=== PATIENT | female | born 1955 | race Caucasian/White ===

== ENCOUNTER → 2016-08-13 | Outpatient (CLI) | payer BC, OTHER ==
--- NOTE | 2016-08-13 14:16 | DRAGON STRESS TEST REPORT ---
EXERCISE TREADMILL CARDIOLITE STRESS TEST USING SINGLE PHOTON EMMISION COMPUTERIZED TOMOGRAPHIC. DATE OF PROCEDURE: August 13, 2016 INDICATION : Abnormal EKG CARDIAC RISK FACTORS: Diabetes, hypertension, smoking RESTING EKG: Sinus rhythm without any baseline ST-T wave changes STRESS EKG: No significant changes noted with exercise treadmill stress test REASON FOR TERMINATION: Dyspnea and fatigue PROCEDURE REPORT: Baseline heart rate 97 beats per minute with blood pressure of 134/80. Patient was excised on a standard Duncan protocol. Patient exercised for total of 4 minutes and 57 seconds. Exercise stopped because of fatigue and shortness of breath. Patient achieved a peak heart rate of 146 bpm which is 91% predicted maximum. Peak blood pressure noted to be 187/93. Patient reported no chest pain. No significant EKG changes were noted CONCLUSIONS: Normal EKG and hemodynamic response to treadmill stress test NUCLEAR DATA: At rest the patient was given [10.13] millicuries of technetium 99 sestamibi injected intravenously. As per protocol rest gated SPECT images were obtained. At peak exercise the stress dose of [30.7] millicuries of technetium 99 sestamibi was injected intravenously. Patient continued to exercise for one additional minute. As per protocol stress gated images were obtained. NUCLEAR INTERPRETATION: Both raw and processed data were used for interpretation. Visual, qualitative, computer-generated quantitative data was used. There was good myocardial uptake of technetium compound. Motion artifact and soft tissue attenuations were noted. Increased visceral uptake was noted. No definitive areas of transient perfusion defect noted. No definitive areas of fixed perfusion defect or scars noted. EKG gated imaging showed LV EF at 64 %, rest and stress gated EF similar visually. T. I D. ratio was 0.93. Lung heart ratio noted to be within normal limits 0.30. No significant extracardiac and abnormal radiotracer activities were noted. RV free wall uptake was noted to be borderline Increased. IMPRESSION: Also refer to comments under nuclear interpretation. Also test results needs to be interpreted in the context of pretest probability. 1. There is no definitive scintigraphic evidence of LexiScan induced myocardial ischemia. 2. There is no definitive scintigraphic evidence of myocardial infarction/scar. 3. EKG gated imaging shows left ejection fraction of approximately 64 %. RECOMMENDATIONS: Aggressive risk factor modification, medical therapy. Decreased exercise tolerance for patient age. Consider cardiology consultation if clinically indicated. I AM AVAILABLE FOR CARDIOLOGY CONSULTATION AND FOLLOWUP IF REQUESTED BY PMD Angela Wilhelm M.D., MRCP [employer], Board certified in cardiovascular diseases, Nuclear cardiology, Echocardiography Cardiac CT and cardiac MRI Ph. [phone] FARNAZ
== END ==
LOC: RAD 06:50
PROVIDERS: ATTEND Internal Medicine
DX: R07.9 Chest pain, unspecified (principal); R94.31 Abnormal electrocardiogram [ECG] [EKG]
CPT/HCPCS: 93017; 78452; A9500; Q9969

== ENCOUNTER 2017-06-08 08:46 | Emergency (ER) | payer BC, OTHER ==
[2017-06-08 08:52] VITALS: BP 158/97
[2017-06-08] MEDS ORDERED: HYDROCODONE/ACETAMINOPHEN 5-325 MG TABLET PO ONE (09:20)
[2017-06-08] MEDS ORDERED: AMOXICILLIN TR/POT CLAVULANATE 500-125 MG TAB PO ONE (09:20)
[2017-06-08] MEDS ORDERED: ONDANSETRON 4 MG TAB.RAPDIS PO ONE (09:20)
--- NOTE | 2017-06-08 10:17 | RADIOLOGY REPORT (SQ) ---
EXAM DESCRIPTION: FACIAL BONES COMPLETED DATE/TIME: 06/08/2017 9:58 am REASON FOR STUDY: fall hit face on ladder COMPARISON: None. NUMBER OF VIEWS: Three view. TECHNIQUE: Images of the facial bones acquired. LIMITATIONS: None. FINDINGS: ORBITS: No fracture. No foreign body. SINUSES: No mucosal thickening. No air fluid levels. FACIAL BONES: No fracture. OTHER: No other significant finding. IMPRESSION: NO FOREIGN BODY OR FRACTURE OF THE FACIAL BONES. TECHNICAL DOCUMENTATION: JOB ID: [id number] [employer]- All Rights Reserved
--- NOTE | 2017-06-08 10:52 | ER Document Report ---
ED Oral Problem - General Chief Complaint: Laceration Stated Complaint: LIP LACERATION Time Seen by Provider: 06/08/17 09:09 Mode of Arrival: Ambulatory Information source: Patient Notes: 61-year-old female presents to ED for pain in her right side of her face after she fell landing on a metal ladder. She states her last tetanus was about 2 months ago. She has a laceration to the face just above the lip and just to the right of the lip. She states she also feels dizzy. She denies taking any blood thinners. She is alert and oriented speaks full sentences and walks with a steady even gait. TRAVEL OUTSIDE OF THE [place] IN LAST 30 DAYS: No - HPI Patient complains to provider of: Jaw pain, Swelling of jaw, Other - Laceration to her face just to the right of her mouth and just above her upper lip as well as bruises Onset: Just prior to arrival Quality of pain: Burning, Sharp Severity: Moderate Pain Level: 4 Associated symptoms: Facial pain, Jaw pain, Other - Facial laceration and laceration inside of her mouth Similar symptoms previously: No Recently seen / treated by doctor/dentist: No - Related Data Allergies/Adverse Reactions: oxycodone HCl [From Percocet] Adverse Reaction (Verified 06/08/17 08:48) VOMITING tetracycline [Tetracycline] Adverse Reaction (Verified 06/08/17 08:48) VOMITING Past Medical History - General Information source: Patient - Social History Smoking Status: Unknown if Ever Smoked Frequency of alcohol use: None Lives with: Family Family History: Reviewed & Not Pertinent Patient has suicidal ideation: No Patient has homicidal ideation: No - Past Medical History Cardiac Medical History: Reports: Hx Hypercholesterolemia, Hx Hypertension Pulmonary Medical History: Reports: Hx COPD EENT Medical History: Reports: None Neurological Medical History: Reports: None Endocrine Medical History: Reports: Hx Diabetes Mellitus Type 2, Hx Hypothyroidism Renal/ Medical History: Reports: None Malignancy Medical History: Reports: None GI Medical History: Reports: None Musculoskeltal Medical History: Reports Hx Musculoskeletal Trauma Skin Medical History: Reports None Psychiatric Medical History: Reports: None Traumatic Medical History: Reports: None Past Surgical History: Reports: Hx Appendectomy, Hx Hysterectomy - Immunizations Immunizations up to date: Yes Hx Diphtheria, Pertussis, Tetanus Vaccination: Yes - 2017 Review of Systems - Review of Systems Constitutional: No symptoms reported EENT: Mouth pain, Other - Facial pain, jaw pain, facial laceration, mouth laceration. Cardiovascular: No symptoms reported Respiratory: No symptoms reported Gastrointestinal: No symptoms reported Genitourinary: No symptoms reported Female Genitourinary: No symptoms reported Musculoskeletal: Other - Facial bone and jaw pain Skin: Other - Facial laceration and oral laceration Hematologic/Lymphatic: No symptoms reported Neurological/Psychological: No symptoms reported -: Yes All other systems reviewed and negative Physical Exam - Vital signs Vitals: Temp Pulse Resp BP Pulse Ox 97.6 F 102 H 18 158/97 H 99 06/08/17 08:51 06/08/17 08:51 06/08/17 08:51 06/08/17 08:51 06/08/17 08:51 Interpretation: Normal - General General appearance: Appears well, Alert - HEENT Head: Normocephalic, Atraumatic Eyes: Normal Pupils: PERRL Ears: Normal External canal: Normal Tympanic membrane: Normal Sinus: Normal Nasal: Normal Mouth/Lips: Laceration - Laceration to the upper internal lip, Other - Laceration to the base just to the right of the lip and just above the right upper lip Mucous membranes: Normal Pharynx: Normal Neck: Normal - Respiratory Respiratory status: No respiratory distress Chest status: Nontender Breath sounds: Normal Chest palpation: Normal - Cardiovascular Rhythm: Regular Heart sounds: Normal auscultation Murmur: No - Abdominal Inspection: Normal Distension: No distension Bowel sounds: Normal Tenderness: Nontender Organomegaly: No organomegaly - Back Back: Normal, Nontender - Extremities General upper extremity: Normal inspection, Nontender, Normal color, Normal ROM , Normal temperature General lower extremity: Normal inspection, Nontender, Normal color, Normal ROM , Normal temperature, Normal weight bearing. No: Kym's sign - Neurological Neuro grossly intact: Yes Cognition: Normal Orientation: AAOx4 Ayla Coma Scale Eye Opening: Spontaneous [place] Coma Scale Verbal: Oriented Ayla Coma Scale Motor: Obeys Commands Ayla Coma Scale Total: 15 Speech: Normal Motor strength normal: LUE, RUE, LLE, RLE Sensory: Normal - Psychological Associated symptoms: Normal affect, Normal mood - Skin Skin Temperature: Warm Skin Moisture: Dry Skin Color: Normal Skin irregularity: Laceration - Right side of the face just beside the mouth and just above the right upper lip Location of irregularity: Face Irregularity with: Tenderness Course - Re-evaluation Re-evalutation: 06/08/17 20:58 Patient treated with [place] and Augmentin and discharged home with rest of the [place] dispense back. - Vital Signs Vital signs: Temp Pulse Resp BP Pulse Ox 97.6 F 102 H 18 158/97 H 99 06/08/17 08:51 06/08/17 08:51 06/08/17 08:51 06/08/17 08:51 06/08/17 08:51 Procedures - Laceration/Wound Repair Right Face side and above the mouth Time completed: 10:56 Wound length (cm): 3 Wound's Depth, Shape: Superficial Laceration pre-procedure: Sterile PPE donned, Sterile drapes applied, Shur- Clens applied Anesthetic type: Other - none Volume Anesthetic (mLs): 0 Wound explored: Contaminated Irrigated w/ Saline (mLs): 200 Wound Repaired With: Steri-strips, Dermabond Number of Sutures: 0 Layer Closure?: No Post-procedure NV exam normal: Yes Discharge - Discharge Clinical Impression: Facial laceration Qualifiers: Encounter type: initial encounter Qualified Code(s): S01.81XA - Laceration without foreign body of other part of head, initial encounter Laceration of oral cavity Qualifiers: Encounter type: initial encounter Qualified Code(s): S01.512A - Laceration without foreign body of oral cavity, initial encounter Condition: Stable Disposition: HOME, SELF-CARE Additional Instructions: ORAL LACERATION, NOT SUTURED: The laceration in your mouth was not sutured because the physician felt it would heal well without it. Suturing does increase the risk of infection somewhat, as germs in the wound are trapped inside. Most cuts in the mouth heal quickly with no significant scar. The wound will appear white and rough tomorrow. This unusual appearance is normal for an oral laceration, and will persist until healing is complete. You should rest for 24 hours to minimize swelling. Avoid tart or spicy foods, or hard foods which might stick in the cut (like tortilla chips), for a few days. If any signs of infection occur (swelling, redness of the skin directly over the laceration area, increasing tenderness, tender lumps below the jaw or on the sides of the neck, or fever), see the doctor immediately. NON-SUTURED LACERATION: Your laceration did not require suturing. Some lacerations cannot be sutured because of increased infection risk, while others simply don't need stitches because they are shallow or very short. Your injury should be protected while it heals. Usually complete healing takes 10 to 14 days. Keep the dressing clean and dry, and change it every day. If you notice increasing pain, redness, swelling, drainage, or tender lumps in the armpit or groin above the injury, infection may be present. You should call the doctor at once. Augmentin Augmentin is a mixture of amoxicillin and clavulanate. Amoxicillin is a member of the penicillin family. It covers the germs likely to cause ear, bronchial, and urinary infections better than plain penicillin. The addition of clavulanate allows it to cover staph infections of the skin, as well as resistant cases of ear and sinus infections. Your physician has chosen Augmentin for you because of the special nature of your situation. Augmentin is best taken with meals. Nausea after taking the medication is rare, but can occur. Diarrhea can occur, particularly in small children. Vaginal yeast infections, and oral thrush in infants are also common. Contact your physician if these problems occur. Allergy to penicillins is common. If you have had an allergic reaction to any drug of the penicillin family, you should never take any other penicillin. Notify your doctor at once if you develop hives, shortness of breath, swelling, or faintness. Acetaminophen Acetaminophen may be taken for pain relief or fever control. It's much safer than aspirin, offering a wider range of "safe" dosages. It is safe during . Some brand names are Tylenol, Panadol, Datril, Anacin 3, Tempra, and Liquiprin. Acetaminophen can be repeated every four hours. The following are maximum recommended dosages: WEIGHT Dose Drops Elixir Chewable( 80mg) (LBS.) drprs=droppers tsp=teaspoon 6 40 mg .4 ml (1/2) 6-11 80 mg .8 ml (full) 1/2 tsp 1 tab 12-16 120 mg 1 1/2 drprs 3/4 tsp 1 1/2 tabs 17-23 160 mg 2 drprs 1 tsp 2 tabs 24-30 240 mg 3 drprs 1 1/2 tsp 3 tabs 30-35 320 mg 2 tsp 4 tabs 36-41 360 mg 2 1/4 tsp 4 1 /2 tabs 42-47 400 mg 2 1/2 tsp 5 tabs 48-53 480 mg 3 tsp 6 tabs 54-59 520 mg 3 1/4 tsp 6 1 /2 tabs 60-64 560 mg 3 1/2 tsp 7 tabs 65-70 600 mg 3 3/4 tsp 7 1 /2 tabs 71-76 640 mg 4 tsp 8 tabs 77-82 720 mg 4 1/2 tsp 9 tabs 83-88 800 mg 5 tsp 10 tabs >89 pounds or adults 650 mg to 900 mg Acetaminophen can be repeated every four hours. Maximum daily dose not to exceed 4000 mg. These maximum recommended dosages are slightly higher than the dosages written on the product container, but these dosages are very safe and well below the toxic dosage for acetaminophen. Oral Narcotic Medication You have been given a prescription for pain control. This medication is a narcotic. It's best taken with food, as nausea can result if taken on an empty stomach. Don't operate machinery or drive within six hours of taking this medication. Do not combine this medicine with alcohol, or with any medication which can cause sedation (such as cold tablets or sleeping pills) unless you get permission from the physician. Narcotics tend to cause constipation. If possible, drink plenty of fluids and eat a diet high in fiber and fruits. Ibuprofen Ibuprofen is an excellent, safe drug for pain control. In addition, it has potent antiinflammatory effects which are beneficial, especially in the treatment of injuries, arthritis, or tendonitis. It's best to take ibuprofen with food. Persons with ulcer disease or allergy to aspirin should notify their physician of this before taking ibuprofen. Take the medication exactly as prescribed. Don't take additional doses unless instructed to do so by your doctor. If you develop wheezing, shortness of breath, hives, faintness, stomach pain, vomiting, or dark black stools, return for re-evaluation at once. Dermabond (Skin Adhesive Closure) Skin adhesive (such as Dermabond) is a quick-drying glue that remains slightly flexible while it holds wound edges together. It can substitute for stitches on some cuts. The film will usually fall off the skin after 5 to 10 days. Keep the wound area clean and dry. Do not soak or scrub the wound. Don't swim. You can shower briefly after 24 hours. Gently blot the area dry with a soft towel. Don't apply ointments. If there is a dressing, change it immediately if it gets wet. Do not place tape directly over the adhesive film, because the tape may pull the film off your skin as you remove it. Don't bump the wound area. If there's risk of injury, keep the area well- padded. Avoid stretching of the skin. Do not scratch or pick at the adhesive film. Avoid prolonged exposure to sunlight or tanning lamps. Return if there is increasing pain, swelling, redness, or drainage, or if the wound edges seem to open or separate. Care of Steri-Strip Closure Your cut has been closed up with a special surgical tape. For this type of cut, it can replace stitches. You must protect the wound just as you would with stitches, however. For the first few days, keep the wound area completely dry. This also means you should avoid activity which makes you sweat. Do not move the area if motion stretches or wrinkles the strips. Don't allow the area to be bumped -- if bleeding occurs, the blood can make the strips loosen. The strips are somewhat waterproof. After a few days, the physician may allow you to shower. Be sure to ask if it's OK. Do not remove the tape until it peels off by itself. At that time, the wound should be healed. FOLLOW-UP CARE: If you have been referred to a physician for follow-up care, call the physician s office for an appointment as you were instructed or within the next two days. If you experience worsening or a significant change in your symptoms, notify the physician immediately or return to the Emergency Department at any time for re-evaluation. Prescriptions: Hydrocodone/Acetaminophen [[place] 5-325 mg Tablet] 1 tab PO Q6HP PRN #7 tablet PRN Reason: Ondansetron [Zofran Odt 4 mg Tablet] 4 mg PO Q6HP PRN #10 tab.rapdis PRN Reason: Amox Tr/Potassium Clavulanate [Augmentin 875-125 Tablet] 1 tab PO BID 10 Days tablet Fluconazole [Diflucan] 150 mg PO ONCE PRN #1 tablet PRN Reason: Forms: Elevated Blood Pressure, Return to Work Referrals: IVÁN RIVERA MD [Primary Care Provider] - Follow up as needed
== END 2017-06-08 11:07 | disposition home or self-care (01) ==
LOC: ER 08:46
PROC: 0HQ1XZZ Repair Face Skin, External Approach (ICD-10-PCS; principal; 2017-06-08)
DX: S01.81XA Laceration without foreign body of other part of head, initial encounter (principal); S01.512A Laceration without foreign body of oral cavity, initial encounter; R68.84 Jaw pain; R22.0 Localized swelling, mass and lump, head; W10.9XXA Fall (on) (from) unspecified stairs and steps, initial encounter
CPT/HCPCS: 99283; 70150; 12013; S0119

== ENCOUNTER → 2018-10-13 | Outpatient (CLI) | payer BC, OTHER ==
--- NOTE | 2018-10-13 16:00 | RADIOLOGY REPORT (SQ) ---
EXAM DESCRIPTION: SHOULDER RIGHT 2 OR MORE VIEWS COMPLETED DATE/TIME: 10/13/2018 2:40 pm REASON FOR STUDY: PAIN IN RT SHOULDER M25.511 PAIN IN RIGHT SHOULDER COMPARISON: None. NUMBER OF VIEWS: Three views. TECHNIQUE: Internal rotation, external rotation, and Y view images acquired of the right shoulder. LIMITATIONS: None. FINDINGS: MINERALIZATION: Normal. BONES: No acute fracture or dislocation. No worrisome bone lesions. JOINTS: No glenohumeral dislocation. No acromioclavicular joint widening. Mild AC joint bony spurri ng. VISUALIZED LUNGS AND RIBS: No pneumothorax. No rib fracture. SOFT TISSUES: No radiopaque foreign body. OTHER: No other significant finding. IMPRESSION: No acute fracture or malalignment. Mild acromioclavicular joint bony spurring. TECHNICAL DOCUMENTATION: JOB ID: [id number] [employer]- All Rights Reserved Reading location - IP/workstation name: [email or web address]
== END ==
LOC: OD 14:20
PROVIDERS: ATTEND Internal Medicine
DX: M75.51 Bursitis of right shoulder (principal); M25.511 Pain in right shoulder

== ENCOUNTER → 2018-10-27 | Day surgery (SDC) | payer BC, OTHER ==
[~2018-10-27] MED LIST: LIDOCAINE 1% INJ-PF (10 MG/ML) 30 ML SDV ONE
--- NOTE | 2018-10-27 11:19 | RADIOLOGY REPORT (SQ) ---
EXAM DESCRIPTION: MRI RT UPPER JOINT WITH COMPLETED DATE/TIME: 10/27/2018 10:35 am REASON FOR STUDY: SLAP TEAR (S43.430L) S43.439A SUPERIOR GLENOID LABRUM LESION OF UNSP SHOULDER, IN COMPARISON: None. TECHNIQUE: Right shoulder images acquired and stored on PACS. Oblique coronal, oblique sagittal, and axial imaging to include fat sensitive sequences as T1, water sensitive sequences as FST2/STIR, and contrast sensitive sequences as FST1. LIMITATIONS: None. FINDINGS: JOINT DISTENTION: Adequate. No loose bodies. BONE MARROW AND CORTEX: Normal. AC JOINT: No bulky overgrowth or subacromial compromise. No widening. Fairly mild degenerative arth ropathy. GLENOHUMERAL JOINT: No subluxation or dislocation or focal chondral lesions. ROTATOR CUFF: Undersurface partial tear along cuff insertion, interface between the supraspinatus and infraspinatus tendons. Bursal surface fibers grossly remain intact. There is mild loss of muscle b ulk, potential slight atrophy. LABRUM AND BICEPS LABRAL COMPLEX: Superior labral tear, irregular undercutting of the biceps anchor s uggestive of a type 2 lesion. No biceps disruption or displacement. Biceps tendinosis is suggested, however. INFERIOR LABRAL COMPLEX: Generally intact. ADJACENT SOFT TISSUES: No axillary adenopathy or mass. OTHER: No other significant finding. IMPRESSION: 1. Partial cuff tear. 2. Superior labral tear, likely type 2 lesion. Biceps tendinosis. TECHNICAL DOCUMENTATION: JOB ID: [id number] [employer]- All Rights Reserved Reading location - IP/workstation name: [email or web address]
--- NOTE | 2018-10-27 14:46 | RADIOLOGY REPORT (SQ) ---
EXAM DESCRIPTION: ARTHRO SHOULDER INJECTION; FLUORO/NEEDLE PLACEMENT COMPLETED DATE/TIME: 10/27/2018 10:51 am REASON FOR STUDY: SLAP TEAR (S43.439A) S43.439A SUPERIOR GLENOID LABRUM LESION OF UNSP SHOULDER, IN COMPARISON: None. FLUOROSCOPY TIME: 0.3 minutes 1 images saved to PACS. LIMITATIONS: None. PROCEDURE: Procedure, risks, benefits and alternatives explained to patient who then gave written co nsent. The right shoulder was marked and a time out was called for correct procedure verification. P osterior entry site marked using fluoroscopic guidance. Shoulder prepped and draped using sterile te chnique. Local anesthesia achieved using 1% lidocaine injection. Hypodermic needle introduced into the joint space under direct fluoroscopic visualization. Non-ionic contrast instilled to confirm intr a-articular position. Dilute gadolinium solution then injected. Needle removed and entry site covere d with sterile bandage. No immediate complications noted. TECHNIQUE: Digital images acquired during fluoroscopy and stored on PACS. Patient immediately take n to the MR suite for additional imaging. INJECTION LOCATION: Posterior right shoulder. CONTRAST TYPE AND AMOUNT: 1 cc Omnipaque, Dotarem/Saline mixture 10 cc IMPRESSION: SUCCESSFUL NEEDLE PLACEMENT AND INJECTION FOR RIGHT SHOULDER MR ARTHROGRAM USING POSTERI OR APPROACH. COMMENT: Quality ID [id number]: Final reports for procedures using fluoroscopy that document radiation exp osure indices, or exposure time and number of fluorographic images (if radiation exposure indices are not available) TECHNICAL DOCUMENTATION: JOB ID: [id number] [employer]- All Rights Reserved Reading location - IP/workstation name: [email or web address]
== END ==
LOC: RAD 08:44 → EDSTATUS 09:00
PROVIDERS: ATTEND Internal Medicine
DX: S43.439A Superior glenoid labrum lesion of unspecified shoulder, initial encounter (principal); X58.XXXA Exposure to other specified factors, initial encounter
CPT/HCPCS: 73222; 77002; 23350; A9576; J3490

== ENCOUNTER 2019-01-03 05:55 | Observation (INO) | payer BC, OTHER ==
--- NOTE | 2019-01-03 06:27 | ER Document Report ---
ED General - General Chief Complaint: Chest Pain Stated Complaint: CHEST PAIN Time Seen by Provider: 01/03/19 06:23 Primary Care Provider: IVÁN RIVERA MD [Primary Care Provider] - Follow up as needed Notes: Patient is a 63-year-old female that presents to the emergency department for chief complaint of chest pain. The patient reports that the pain started last night. The currently rate the pain as 5 out of 10, and described as aching and tightness pain in the middle of her chest that radiates to the left shoulder and neck and goes towards the back as well. She reports the pain is worse with lying flat, and better with sitting up they have had associated shortness of breath, nausea and mild diaphoresis, all of which have subsided. Denies any abdominal pain, fevers, chills, cough, dysuria or hematuria. Their risk factors for heart disease include hypertension, diabetes mellitus, hyperlipidemia and positive family history and smoking history. She reports having a stress test but it was over a year ago, she thinks it was negative at that time. Past Medical History: Hypertension, hyperlipidemia, diabetes mellitus Past Surgical History: cholecystectomy, hysterectomy Social History: admits to smoking cigarettes, denies etoh or drug use. Family History: Reviewed and noncontributory for presenting illness Allergies: Reviewed, see documented allergy list. REVIEW OF SYSTEMS: Other than noted above, the 12 point review of systems was reviewed with the patient and were negative, all pertinent findings are included in the HPI. PHYSICAL EXAMINATION: Vital signs reviewed, nursing noted reviewed. GENERAL: Well-appearing, well-nourished and in no acute distress. HEAD: Atraumatic, normocephalic. EYES: Eyes appear normal, extraocular movements intact, sclera anicteric, conjunctiva are normal. ENT: nares patent, oropharynx clear without exudates. Moist mucous membranes. NECK: Normal range of motion, supple without lymphadenopathy LUNGS: Breath sounds clear to auscultation bilaterally and equal. No wheezes rales or rhonchi. HEART: Regular rate and rhythm without murmurs ABDOMEN: Soft, nontender, normoactive bowel sounds. No rebound, guarding, or rigidity. No masses appreciated. EXTREMITIES: Nontender, good range of motion, no pitting or edema. NEUROLOGICAL: No focal neurological deficits. Moves all extremities spontaneously Motor and sensory grossly intact on exam. PSYCH: Normal mood, normal affect. SKIN: Warm, Dry, normal turgor, no rashes or lesions noted on exposed skin TRAVEL OUTSIDE OF THE [place] IN LAST 30 DAYS: No - Related Data Allergies/Adverse Reactions: oxycodone HCl [From Percocet] Adverse Reaction (Verified 01/03/19 06:01) VOMITING tetracycline [Tetracycline] Adverse Reaction (Verified 01/03/19 06:01) VOMITING Past Medical History - Social History Smoking Status: Current Every Day Smoker Family History: Reviewed & Not Pertinent - Past Medical History Cardiac Medical History: Reports: Hx Hypercholesterolemia, Hx Hypertension Denies: Hx Coronary Artery Disease, Hx Heart Attack Pulmonary Medical History: Reports: Hx COPD Denies: Hx Asthma, Hx Bronchitis, Hx Pneumonia Neurological Medical History: Denies: Hx Cerebrovascular Accident, Hx Seizures Endocrine Medical History: Reports: Hx Diabetes Mellitus Type 2, Hx Hypothyroidism Renal/ Medical History: Denies: Hx Peritoneal Dialysis GI Medical History: Denies: Hx Hepatitis, Hx Hiatal Hernia, Hx Ulcer Musculoskeletal Medical History: Denies Hx Arthritis, Reports Hx Musculoskeletal Trauma Infectious Medical History: Denies: Hx Hepatitis Past Surgical History: Reports: Hx Appendectomy, Hx Hysterectomy. Denies: Hx Mastectomy, Hx Open Heart Surgery, Hx Pacemaker - Immunizations Immunizations up to date: Yes Hx Diphtheria, Pertussis, Tetanus Vaccination: Yes - 2016 Physical Exam - Vital signs Vitals: Pulse Ox 98 01/03/19 06:45 Course - Re-evaluation Re-evalutation: Patient seen and examined vital signs reviewed. Laboratory data and imaging were ordered as appropriate for the patient's presenting symptoms and complaint, with consideration of any critical or life threatening conditions that may be associated with their obtained history and exam as noted above. Patient was treated with aspirin, morphine and Zofran, nitro was considered, however patient's blood pressure was borderline, did not want to drop it. Results were reviewed when available and demonstrated leukocytosis, likely secondary to stress, no concerns for acute infection, her troponin was elevated at 0.095, and given history, this is concerning for possible ischemia. The patient was re-evaluated and was stable, I did discuss the case with the early childhood teacher assistant on-call Dr. Major who agreed to admit the patient and obtain serial troponins and he will see the patient in consult. Evaluation was most consistent with chest pain with elevated troponin Results were discussed with the patient at this point after careful consideration I feel that that patient should be admitted to the hospital. This was discussed with the patient that it is in the best interest for their care to be admitted for further evaluation and management. Patient agreed with this plan of care. A call was placed to the admitted physician, Dr. Florez who graciously accepted the patient onto their service. *Note is created using voice recognition software and may contain spelling, syntax or grammatical errors. Laboratory 01/03/19 01/03/19 01/03/19 06:24 06:24 06:24 WBC 14.7 H RBC 4.57 Hgb 15.7 H Hct 45.7 MCV 100 H MCH 34.4 H MCHC 34.5 RDW 13.3 Plt Count 342 Seg Neutrophils % 79.4 H Lymphocytes % 14.0 Monocytes % 5.7 Eosinophils % 0.1 Basophils % 0.8 Absolute Neutrophils 11.7 H Absolute Lymphocytes 2.1 Absolute Monocytes 0.8 Absolute Eosinophils 0.0 Absolute Basophils 0.1 Sodium 139.1 Potassium 4.3 Chloride 104 Carbon Dioxide 24 Anion Gap 11 BUN 11 Creatinine 0.65 Est GFR ( Amer) > 60 Est GFR (Non-Af Amer) > 60 Glucose 231 H Calcium 9.8 Total Bilirubin 0.6 Direct Bilirubin 0.3 Neonat Total Bilirubin Not Reportable Neonat Direct Bilirubin Not Reportable Neonat Indirect Bili Not Reportable AST 18 ALT 21 Alkaline Phosphatase 70 Troponin I 0.095 Total Protein 7.0 Albumin 4.1 Chest X-Ray 01/03/19 06:45 IMPRESSION: No acute cardiopulmonary findings. - Vital Signs Vital signs: Temp Pulse Resp BP Pulse Ox 98 01/03/19 06:45 - Laboratory Result Diagrams: 01/03/19 06:24 01/03/19 06:24 Laboratory results interpreted by me: 01/03/19 01/03/19 06:24 06:24 WBC 14.7 H Hgb 15.7 H MCV 100 H MCH 34.4 H Seg Neutrophils % 79.4 H Absolute Neutrophils 11.7 H Glucose 231 H - EKG Interpretation by Me Additional EKG results interpreted by me: EKG demonstrates sinus rhythm at a ventricular rate of 92 bpm, left axis deviation, QTC 451 ms, presence of incomplete right bundle branch block, no ST elevation, no prior for comparison. Discharge - Discharge Clinical Impression: Elevated troponin Chest pain Qualifiers: Chest pain type: unspecified Qualified Code(s): R07.9 - Chest pain, unspecified Condition: Stable Disposition: ADMITTED INPATIENT Admitting Provider: Vikki (Hospitalist) Unit Admitted: Telemetry Referrals: IVÁN RIVERA MD [Primary Care Provider] - Follow up as needed
--- NOTE | 2019-01-03 06:38 | EKG REPORT ---
SEVERITY:- ABNORMAL ECG - SINUS RHYTHM PROBABLE LEFT ATRIAL ABNORMALITY INCOMPLETE RIGHT BUNDLE BRANCH BLOCK INFERIOR INFARCT, AGE INDETERMINATE LWO VOLTAGE EKG : Confirmed by: Jake Astorga MD 03-Jan-2019 06:37:33
[2019-01-03] MEDS ORDERED: ASPIRIN 81 MG TABLET, CHEWABLE PO ONE (06:45)
[2019-01-03 07:02] LABS: ABSOLUTE BASOPHILS # (AUTO) 0.1 10^3/uL (0.0-0.2); ABSOLUTE LYMPHOCYTES (AUTO) 2.1 10^3/uL (0.5-4.7); ABSOLUTE MONOCYTES (AUTO) 0.8 10^3/uL (0.1-1.4); ABSOLUTE NEUT (AUTO) 11.7 10^3/uL (1.7-8.2); BASOPHILS % (AUTO) 0.8 % (0-2); EOSINOPHILS % (AUTO) 0.1 % (0-6); HEMATOCRIT 45.7 % (36.0-47.0); HEMOGLOBIN 15.7 g/dL (12.0-15.5); MEAN CORPUSCULAR HEMOGLOBIN 34.4 pg (27.0-33.4); MEAN CORPUSCULAR HGB CONC 34.5 g/dL (32.0-36.0); MEAN CORPUSCULAR VOLUME 100 fl (80-97); MONOCYTES % (AUTO) 5.7 % (3-13); PLATELET COUNT 342 10^3/uL (150-450); RED BLOOD COUNT 4.57 10^6/uL (3.72-5.28); RED CELL DISTRIBUTION WIDTH 13.3 % (11.5-14.0); SEGMENTED NEUTROPHILS % (AUTO) 79.4 % (42-78); TOTAL CELLS COUNTED % (AUTO) 100 %; WHITE BLOOD COUNT 14.7 10^3/uL (4.0-10.5)
[2019-01-03 07:09] LABS: ALANINE AMINOTRANSFERASE 21 U/L (9-52); ALBUMIN 4.1 g/dL (3.5-5.0); ALKALINE PHOSPHATASE 70 U/L (38-126); ANION GAP 11 (5-19); ASPARTATE AMINO TRANSFERASE 18 U/L (14-36); BILIRUBIN,DIRECT 0.3 mg/dL (0.0-0.4); BILIRUBIN,TOTAL 0.6 mg/dL (0.2-1.3); BLOOD UREA NITROGEN 11 mg/dL (7-20); CALCIUM 9.8 mg/dL (8.4-10.2); CARBON DIOXIDE 24 mmol/L (22-30); CHLORIDE 104 mmol/L (98-107); GLUCOSE 231 mg/dL (75-110); POTASSIUM 4.3 mmol/L (3.6-5.0); SODIUM 139.1 mmol/L (137-145)
--- NOTE | 2019-01-03 07:27 | RADIOLOGY REPORT (SQ) ---
EXAM DESCRIPTION: XR CHEST 1 VIEW COMPLETED DATE/TME: 01/03/2019 06:45 CLINICAL HISTORY: 63 years Female, chest pain COMPARISON: None. NUMBER OF VIEWS/TECHNIQUE: 1/AP FINDINGS: Adequate lung volume, clear parenchyma, normal cardiac silhouette, and intact bony thorax. IMPRESSION: No acute cardiopulmonary findings.
[2019-01-03] MEDS ORDERED: ONDANSETRON HCL INJ/PF 4 MG/2 ML SDV IV ONE (07:41)
[2019-01-03] MEDS ORDERED: MORPHINE SULFATE 10 MG/ML INJ IV ONE (07:41)
[2019-01-03] MEDS ORDERED: PROMETHAZINE HCL INJ 25 MG/1 ML VIAL IV PRN (09:13)
[2019-01-03] MEDS ORDERED: TEMAZEPAM 7.5 MG CAPSULE PO PRN (09:13)
[2019-01-03] MEDS ORDERED: ONDANSETRON HCL INJ/PF 4 MG/2 ML SDV IV PRN (09:13)
[2019-01-03] MEDS ORDERED: IPRATROPIUM/ALBUTEROL 0.5-2.5 MG/3 ML AMPUL NEB PRN (09:13)
[2019-01-03] MEDS ORDERED: ACETAMINOPHEN 325 MG TABLET PO PRN (09:13)
[2019-01-03] MEDS ORDERED: MORPHINE SULFATE 10 MG/ML INJ IV PRN (09:17)
[2019-01-03] MEDS ORDERED: NITROGLYCERIN 0.4 MG/TAB 25 TAB/BOTTLE SL PRN (09:17)
[2019-01-03] MEDS ORDERED: HYDRALAZINE HCL INJ/PF 20 MG/1 ML SDV IV PRN (09:19)
[2019-01-03] MEDS ORDERED: DEXTROSE 50%-WATER 25 GM/50 ML DISP.SYRIN IV PRN ×2 (09:20)
[2019-01-03] MEDS ORDERED: GLUCAGON,HUMAN RECOMB 1 MG INJ IM PRN (09:20)
[2019-01-03] MEDS ORDERED: DEXTROSE 40% GEL 15 GM TUBE PO PRN ×2 (09:20)
[2019-01-03] MEDS ORDERED: ENOXAPARIN SODIUM INJ 40 MG/0.4 ML DISP.SYRIN SUBCUT SCH (10:00)
[2019-01-03] MEDS: ASPIRIN 81 MG TABLET, CHEWABLE PO SCH (10:16)
[2019-01-03] MEDS: DOCUSATE SODIUM 100 MG CAPSULE PO SCH (10:30)
[2019-01-03] MEDS: FAMOTIDINE INJ/PF 20 MG/2 ML SDV IV SCH ×2 (10:32→21:29)
[2019-01-03] MEDS: INSULIN LISPRO 100 UNIT/ML 3 ML VIAL SUBCUT SCH ×3 (11:49→21:37)
--- NOTE | 2019-01-03 13:09 | PDOC H&P ---
History of Present Illness Admission Date/PCP: 01/03/19 08:21 IVÁN RIVERA MD History of Present Illness: BECCA SESAY is a 63 year old female medical history of diabetes, hypertension, dyslipidemia, diabetes, hypothyroidism, COPD not on home oxygen, family history of CAD on the father's side, ED complaining of chest pain. She was sleeping last night woke up with left-sided chest pain at 3 AM which she explains as 5/5, sharp radiating to her back, with deep breathing, better with sitting or standing up, constant, improved to 2/5 on severity scale after receiving nitro and morphine in ED. Chest pain associated with shortness of breath otherwise denies any fever, chills, nausea, vomiting, diarrhea, constipation, urinary system, weight changes, lower extremity swelling, orthopnea, paroxysmal nocturnal dyspnea, cold or heat intolerance, skin changes, IV drug abuse, trauma, heavy lifting. In ED EKG was SR, inferior infarct age indeterminate and incomplete RBBB, troponin 0.095 and 0.065 respectively. X-ray no acute cardiopulmonary findings. In Ed she was started on Nitro, aspirn and IV morphine, hospitalist consulted for admission. On physical examination patient has mild TTP to the left pectoral region denies any heavy lifting or trauma. Past Medical History Cardiac Medical History: Reports: Hyperlipidema, Hypertension Denies: Coronary Artery Disease, Myocardial Infarction Pulmonary Medical History: Reports: Chronic Obstructive Pulmonary Disease (COPD) Denies: Asthma, Bronchitis, Pneumonia Neurological Medical History: Denies: Seizures Endocrine Medical History: Reports: Diabetes Mellitus Type 2, Hypothyroidism GI Medical History: Denies: Hepatitis, Hiatal Hernia Musculoskeltal Medical History: Denies: Arthritis Hematology: Denies: Anemia, Sickle Cell Disease Past Surgical History Past Surgical History: Reports: Appendectomy, Hysterectomy Denies: Amputation, Mastectomy, Pacemaker Social History Smoking Status: Current Every Day Smoker Family History Family History: Reviewed & Not Pertinent Parental Family History Reviewed: Yes - Father has CAD in his 50s Children Family History Reviewed: Yes Sibling(s) Family History Reviewed.: Yes Medication/Allergy Home Medications: Albuterol Sulfate [Proair HFA Inhalation Aerosol 8.5 gm MDI] 1 puff IH Q4HP PRN 01/03/19 Canagliflozin [Invokana] 300 mg PO DAILY 01/03/19 Dulaglutide [Trulicity] 1.5 mg SQ MO 01/03/19 Estradiol 0.5 mg PO Q12 01/03/19 Glimepiride [Amaryl 4 mg Tablet] 4 mg PO BID 01/03/19 Ibuprofen [Motrin 800 mg Tablet] 800 mg PO Q8HP PRN 01/03/19 Levothyroxine Sodium 112 mcg PO Q6AM 01/03/19 Metformin HCl [Metformin HCl ER] 1,000 mg PO Q12 01/03/19 Simvastatin 20 mg PO QPM 01/03/19 Verapamil HCl [Verapamil ER] 360 mg PO QPM 01/03/19 Allergies/Adverse Reactions: oxycodone HCl [From Percocet] Adverse Reaction (Verified 01/03/19 06:01) VOMITING tetracycline [Tetracycline] Adverse Reaction (Verified 01/03/19 06:01) VOMITING Review of Systems Review of Systems: as per HPI Physical Exam Vital Signs: Temp Pulse Resp BP Pulse Ox 84 19 94/61 L 93 01/03/19 10:59 01/03/19 10:59 01/03/19 08:11 01/03/19 10:59 Intake & Output 01/02/19 01/03/19 01/04/19 06:59 06:59 06:59 Weight 66.678 kg General appearance: PRESENT: no acute distress, well-developed, well-nourished Head exam: PRESENT: atraumatic, normocephalic Eye exam: PRESENT: conjunctiva pink, EOMI, PERRLA. ABSENT: scleral icterus Ear exam: PRESENT: normal external ear exam Mouth exam: PRESENT: moist, tongue midline Neck exam: ABSENT: carotid bruit, JVD, lymphadenopathy, thyromegaly Respiratory exam: PRESENT: clear to auscultation biju. ABSENT: rales, rhonchi, wheezes Cardiovascular exam: PRESENT: RRR. ABSENT: diastolic murmur, rubs, systolic murmur Pulses: PRESENT: normal dorsalis pedis pul, other - Left pectoral region TTP. Vascular exam: PRESENT: normal capillary refill GI/Abdominal exam: PRESENT: normal bowel sounds, soft. ABSENT: distended, guarding, mass, organolmegaly, rebound, tenderness Rectal exam: PRESENT: deferred Extremities exam: PRESENT: full ROM. ABSENT: calf tenderness, clubbing, pedal edema Neurological exam: PRESENT: alert, awake, oriented to person, oriented to place, oriented to time, oriented to situation, CN II-XII grossly intact. ABSENT: motor sensory deficit Psychiatric exam: PRESENT: appropriate affect, normal mood. ABSENT: homicidal ideation, suicidal ideation Skin exam: PRESENT: dry, intact, warm. ABSENT: cyanosis, rash Results Laboratory Results: 01/03/19 06:24 01/03/19 06:24 01/03/19 01/03/19 06:24 06:24 WBC 14.7 H RBC 4.57 Hgb 15.7 H Hct 45.7 MCV 100 H MCH 34.4 H MCHC 34.5 RDW 13.3 Plt Count 342 Seg Neutrophils % 79.4 H Lymphocytes % 14.0 Monocytes % 5.7 Eosinophils % 0.1 Basophils % 0.8 Absolute Neutrophils 11.7 H Absolute Lymphocytes 2.1 Absolute Monocytes 0.8 Absolute Eosinophils 0.0 Absolute Basophils 0.1 Sodium 139.1 Potassium 4.3 Chloride 104 Carbon Dioxide 24 Anion Gap 11 BUN 11 Creatinine 0.65 Est GFR ( Amer) > 60 Est GFR (Non-Af Amer) > 60 Glucose 231 H Calcium 9.8 Total Bilirubin 0.6 AST 18 ALT 21 Alkaline Phosphatase 70 Total Protein 7.0 Albumin 4.1 01/03/19 01/03/19 06:24 10:30 Troponin I 0.095 0.065 Impressions: Chest X-Ray 01/03/19 06:45 IMPRESSION: No acute cardiopulmonary findings. Assessment and Plan - Diagnosis (1) Chest pain Qualifiers: Chest pain type: unspecified Qualified Code(s): R07.9 - Chest pain, unspecified Is this a current diagnosis for this admission?: Yes Plan: CHRISTIANO Score 128. HEART Score 4 Admit to telemetry, antiplatelets, Lovenox, nitro as needed, morphine as needed, supplemental O2, statins. Consider ADDIE or beta-jade. Trend troponins. Stress test tomorrow for further risk stratification. (2) HTN (hypertension) Is this a current diagnosis for this admission?: No Plan: Currently normotensive. Patient takes verapamil at home. Benefit from ADDIE/ARB to underlying diabetes as well as CAD. (3) Diabetes Is this a current diagnosis for this admission?: No Plan: Hemoglobin A1c pending. Reports compliant with her oral antidiabetic's. Takes Trulicity , Invokana and glimepiride at home. Diabetic diet, sliding scale insulin, long-acting insulin, pre-meal insulin. Dosage as needed. Restart home meds on discharge. Follow-up A1c. (4) Hyperlipidemia Is this a current diagnosis for this admission?: No Plan: Diet and lifestyle modification. Restart statins. (5) Tobacco abuse Is this a current diagnosis for this admission?: No Plan: Counseled on quitting. Will provide NicoDerm patch. (6) COPD (chronic obstructive pulmonary disease) Is this a current diagnosis for this admission?: No Plan: Does not seem to be exacerbated. Start home meds. Supplemental oxygen. PRN nebs and BiPAP. (7) Hypothyroidism Is this a current diagnosis for this admission?: No Plan: Start home meds. Start thyroid function pending.
[2019-01-03] MEDS ORDERED: ALBUTEROL SULFATE HFA (90 MCG/PUFF) 200 PUFF/8.5 GM MDI IH PRN (13:20)
[2019-01-03 13:35] LABS: CHOLESTEROL 153.26 mg/dL (0-200); TRIGLYCERIDES 208 mg/dL (<150)
[2019-01-03 13:45] LABS: DIRECT LDL 74 mg/dL (<100)
[2019-01-03 13:48] LABS: VLDL CHOLESTEROL 41.6 mg/dL (10-31)
[2019-01-03] MEDS: NORMAL SALINE 1000 ML 1,000 ML IV PRN (14:09)
[2019-01-03] MEDS ORDERED: IBUPROFEN 800 MG TABLET PO PRN (14:18)
[2019-01-03 14:19] LABS: FREE T3 3.69 pg/mL (2.77-5.27); FREE T4 (FREE THYROXINE) 1.99 ng/dL (0.78-2.19)
[2019-01-03 14:33] LABS: THYROID STIMULATING HORMONE 2.54 uIU/mL (0.47-4.68)
--- NOTE | 2019-01-03 18:28 | PDOC CONSULTATION ---
Consultation Consult Date: 01/03/19 Provider Consulted: SYD FERNANDEZ Consult reason:: chest pain History of Present Illness Admission Date/PCP: 01/03/19 08:21 IVÁN RIVERA MD History of Present Illness: BECCA SESAY is a 63 year old female With past medical history of diabetes mellitus, hypertension, hyperlipidemia, history of chronic cigarette smoking comes in with complaints of pain in both shoulders radiating to upper neck and left arm which started early this morning that woke her up from sleep. She also complains of chest discomfort at the same time which is relieved with sublingual nitroglycerin. Initially when she presented to the ER she also had nausea and vomiting which is resolved now. She claims that she has had similar symptoms before and had a stress test in Jul [address] which was read [address] Wilhelm as negative for any inducible perfusion defects. She smokes less than a pack of cigarettes a day. 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 She denies alcohol abuse or any recreational drug use. She claims that her father also had heart disease and her brother has congestive heart failure. She denies any swelling in the lower extremities or any acute shortness of breath at this time. She has had intermittent episodes of chest pain since she has been admitted to the hospital which are relieved by nitroglycerin. Past Medical History Cardiac Medical History: Reports: Hyperlipidema, Hypertension Denies: Coronary Artery Disease, Myocardial Infarction Pulmonary Medical History: Reports: Chronic Obstructive Pulmonary Disease (COPD) Denies: Asthma, Bronchitis, Pneumonia Neurological Medical History: Denies: Seizures Endocrine Medical History: Reports: Diabetes Mellitus Type 2, Hypothyroidism GI Medical History: Denies: Hepatitis, Hiatal Hernia Musculoskeltal Medical History: Denies: Arthritis Hematology: Denies: Anemia, Sickle Cell Disease Past Surgical History Past Surgical History: Reports: Appendectomy, Hysterectomy Denies: Amputation, Mastectomy, Pacemaker Social History Smoking Status: Current Every Day Smoker Cigarettes Packs Per Day: 1 Frequency of Alcohol Use: None Hx Recreational Drug Use: No Drugs: None Hx Prescription Drug Abuse: No Family History Family History: Reviewed & Not Pertinent, CAD Parental Family History Reviewed: Yes - Father had heart disease Children Family History Reviewed: No Sibling(s) Family History Reviewed.: Yes - Brother has congestive heart failure Medication/Allergy Home Medications: Albuterol Sulfate [Proair HFA Inhalation Aerosol 8.5 gm MDI] 1 puff IH Q4HP PRN 01/03/19 Canagliflozin [Invokana] 300 mg PO DAILY 01/03/19 Dulaglutide [Trulicity] 1.5 mg SQ MO 01/03/19 Estradiol 0.5 mg PO Q12 01/03/19 Glimepiride [Amaryl 4 mg Tablet] 4 mg PO BID 01/03/19 Ibuprofen [Motrin 800 mg Tablet] 800 mg PO Q8HP PRN 01/03/19 Levothyroxine Sodium 112 mcg PO Q6AM 01/03/19 Metformin HCl [Metformin HCl ER] 1,000 mg PO Q12 01/03/19 Simvastatin 20 mg PO QPM 01/03/19 Verapamil HCl [Verapamil ER] 360 mg PO QPM 01/03/19 Allergies/Adverse Reactions: oxycodone HCl [From Percocet] Adverse Reaction (Verified 01/03/19 06:01) VOMITING tetracycline [Tetracycline] Adverse Reaction (Verified 01/03/19 06:01) VOMITING Review of Systems Constitutional: PRESENT: fatigue Cardiovascular: PRESENT: chest pain Gastrointestinal: PRESENT: nausea, vomiting Musculoskeletal: PRESENT: back pain Physical Exam Vital Signs: Temp Pulse Resp BP Pulse Ox 86 19 94/61 L 93 01/03/19 14:00 01/03/19 10:59 01/03/19 08:11 01/03/19 10:59 Intake & Output 01/02/19 01/03/19 01/04/19 06:59 06:59 06:59 Weight 66.678 kg General appearance: PRESENT: no acute distress Head exam: PRESENT: atraumatic, normocephalic Mouth exam: PRESENT: moist, neck supple Neck exam: PRESENT: full ROM Respiratory exam: PRESENT: clear to auscultation biju, unlabored Cardiovascular exam: PRESENT: +S1, +S2 Pulses: PRESENT: normal radial pulses, normal dorsalis pedis pul Vascular exam: PRESENT: normal capillary refill GI/Abdominal exam: PRESENT: normal bowel sounds, soft Extremities exam: PRESENT: full ROM Musculoskeletal exam: PRESENT: ambulatory, full ROM Neurological exam: PRESENT: alert, awake, oriented to person, oriented to place, oriented to time, oriented to situation, CN II-XII grossly intact Results Laboratory Results: 01/03/19 06:24 01/03/19 06:24 01/03/19 01/03/19 01/03/19 06:24 06:24 06:24 WBC 14.7 H RBC 4.57 Hgb 15.7 H Hct 45.7 MCV 100 H MCH 34.4 H MCHC 34.5 RDW 13.3 Plt Count 342 Seg Neutrophils % 79.4 H Lymphocytes % 14.0 Monocytes % 5.7 Eosinophils % 0.1 Basophils % 0.8 Absolute Neutrophils 11.7 H Absolute Lymphocytes 2.1 Absolute Monocytes 0.8 Absolute Eosinophils 0.0 Absolute Basophils 0.1 Sodium 139.1 Potassium 4.3 Chloride 104 Carbon Dioxide 24 Anion Gap 11 BUN 11 Creatinine 0.65 Est GFR ( Amer) > 60 Est GFR (Non-Af Amer) > 60 Glucose 231 H Calcium 9.8 Total Bilirubin 0.6 AST 18 ALT 21 Alkaline Phosphatase 70 Total Protein 7.0 Albumin 4.1 Triglycerides 208 H Cholesterol 153.26 LDL Cholesterol Direct 74 VLDL Cholesterol 41.6 H HDL Cholesterol 42 TSH Free T4 Free T3 pg/mL 01/03/19 06:24 WBC RBC Hgb Hct MCV MCH MCHC RDW Plt Count Seg Neutrophils % Lymphocytes % Monocytes % Eosinophils % Basophils % Absolute Neutrophils Absolute Lymphocytes Absolute Monocytes Absolute Eosinophils Absolute Basophils Sodium Potassium Chloride Carbon Dioxide Anion Gap BUN Creatinine Est GFR ( Amer) Est GFR (Non-Af Amer) Glucose Calcium Total Bilirubin AST ALT Alkaline Phosphatase Total Protein Albumin Triglycerides Cholesterol LDL Cholesterol Direct VLDL Cholesterol HDL Cholesterol TSH 2.54 Free T4 1.99 Free T3 pg/mL 3.69 01/03/19 01/03/19 06:24 10:30 Troponin I 0.095 0.065 Impressions: Chest X-Ray 01/03/19 06:45 IMPRESSION: No acute cardiopulmonary findings. Assessment & Plan - Diagnosis (1) Chest pain Qualifiers: Chest pain type: unspecified Qualified Code(s): R07.9 - Chest pain, unspecified Is this a current diagnosis for this admission?: Yes (2) Diabetes Qualifiers: Diabetes mellitus type: type 2 Is this a current diagnosis for this admission?: No (3) Tobacco abuse Is this a current diagnosis for this admission?: No (4) Hyperlipidemia Is this a current diagnosis for this admission?: No - Notes Notes: Reviewed labs, EKG, telemetry and imaging test. 63-year-old female with multiple comorbidities/risk factors for atherosclerotic cardiovascular disease presents with chest pain radiating to both shoulders and left arm. Cardiac biomarkers still below cutoff for acute coronary syndrome and 2 more cardiac biomarkers to follow. Patient's blood pressure is low normal and she appears warm and well perfused at this time with bilateral symmetrical pulses. Agree with aspirin, statin and anticoagulation and serial cardiac biomarkers. If biomarkers remain negative and patient is chest pain-free then will consider a Lexiscan nuclear stress test in the morning. If she continues to have intermittent chest pain and she may need invasive coronary work-up correctly. Discussed lifestyle modification and smoking cessation. Blood pressure low normal otherwise could be a candidate for low-dose beta-jade therapy and long-acting nitrate. Will follow closely with you. - Time Time Spent: 50 to 70 Minutes Smoking Education Provided: Over 3 minutes
[2019-01-03] MEDS ORDERED: ENOXAPARIN SODIUM INJ 80 MG/0.8 ML DISP.SYRIN SUBCUT SCH (18:30)
[2019-01-03 21:23] LABS: APPEARANCE,URINE CLEAR; BILIRUBIN,URINE NEGATIVE (NEGATIVE); COLOR,URINE YELLOW; GLUCOSE, URINE >=500 mg/dL (NEGATIVE); KETONES,URINE NEGATIVE (NEGATIVE); LEUKOCYTE ESTERASE,URINE NEGATIVE (NEGATIVE); NITRITE,URINE NEGATIVE (NEGATIVE); PROTEIN,URINE NEGATIVE (NEGATIVE); UROBILINOGEN,URINE NEGATIVE mg/dL (<2.0)
[2019-01-03] MEDS: SIMVASTATIN 40 MG TABLET PO SCH (21:29)
[2019-01-03] MEDS: ENOXAPARIN SODIUM INJ 80 MG/0.8 ML DISP.SYRIN SUBCUT SCH (21:29)
[2019-01-03 21:45] LABS: URINE AMPHETAMINES SCREEN NEGATIVE; URINE BARBITURATES SCREEN NEGATIVE; URINE BENZODIAZEPINES SCREEN NEGATIVE; URINE COCAINE SCREEN NEGATIVE; URINE MARIJUANA (THC) SCREEN NEGATIVE; URINE METHADONE SCREEN NEGATIVE; URINE PHENCYCLIDINE SCREEN NEGATIVE
[2019-01-03] MEDS ORDERED: SIMVASTATIN 40 MG TABLET PO SCH (22:00)
--- NOTE | 2019-01-03 23:30 | EKG REPORT ---
SEVERITY:- ABNORMAL ECG - SINUS RHYTHM PROBABLE LEFT ATRIAL ABNORMALITY IVCD, CONSIDER ATYPICAL RBBB INFERIOR INFARCT, AGE INDETERMINATE BORDERLINE R WAVE PROGRESSION, ANTERIOR LEADS : Confirmed by: Zuleika Major MD 03-Jan-2019 23:29:29
[2019-01-04] MEDS: LEVOTHYROXINE SODIUM 0.112 MG TABLET PO SCH (05:04)
[2019-01-04] MEDS: NORMAL SALINE 1000 ML 1,000 ML IV PRN (05:05)
[2019-01-04 07:06] LABS: ABSOLUTE LYMPHOCYTES (AUTO) 1.7 10^3/uL (0.5-4.7); ABSOLUTE MONOCYTES (AUTO) 0.7 10^3/uL (0.1-1.4); ABSOLUTE NEUT (AUTO) 5.1 10^3/uL (1.7-8.2); BASOPHILS % (AUTO) 0.6 % (0-2); EOSINOPHILS % (AUTO) 0.1 % (0-6); HEMATOCRIT 39.3 % (36.0-47.0); HEMOGLOBIN 13.8 g/dL (12.0-15.5); LYMPHOCYTES % (AUTO) 22.8 % (13-45); MEAN CORPUSCULAR HEMOGLOBIN 35.3 pg (27.0-33.4); MEAN CORPUSCULAR HGB CONC 35.2 g/dL (32.0-36.0); MEAN CORPUSCULAR VOLUME 100 fl (80-97); PLATELET COUNT 236 10^3/uL (150-450); RED BLOOD COUNT 3.91 10^6/uL (3.72-5.28); RED CELL DISTRIBUTION WIDTH 12.9 % (11.5-14.0); SEGMENTED NEUTROPHILS % (AUTO) 67.5 % (42-78); TOTAL CELLS COUNTED % (AUTO) 100 %; WHITE BLOOD COUNT 7.5 10^3/uL (4.0-10.5)
[2019-01-04 07:42] LABS: ANION GAP 7 (5-19); BLOOD UREA NITROGEN 10 mg/dL (7-20); CALCIUM 8.8 mg/dL (8.4-10.2); CARBON DIOXIDE 25 mmol/L (22-30); CHLORIDE 105 mmol/L (98-107); GLUCOSE 152 mg/dL (75-110); SODIUM 136.7 mmol/L (137-145)
[2019-01-04] MEDS: INSULIN LISPRO 100 UNIT/ML 3 ML VIAL SUBCUT SCH ×5 (08:13→21:24)
--- NOTE | 2019-01-04 08:44 | PDOC PROGRESS REPORT ---
Subjective Progress Note for:: 01/04/19 Reason For Visit: CHEST PAIN, ELEVATED TROPININ Patient seen at bedside and still complains of intermittent chest discomfort/pain overnight. Denies any nausea or vomiting overnight. Physical Exam Vital Signs: Temp Pulse Resp BP Pulse Ox 98.1 F 99 20 122/66 94 01/04/19 03:57 01/04/19 07:00 01/04/19 03:57 01/04/19 03:57 01/04/19 03:57 Intake & Output 01/03/19 01/04/19 01/05/19 06:59 06:59 06:59 Intake Total 800 Output Total 1150 Balance -350 Weight 65.5 kg General appearance: PRESENT: no acute distress Mouth exam: PRESENT: moist, neck supple Neck exam: PRESENT: full ROM Respiratory exam: PRESENT: clear to auscultation biju, unlabored Cardiovascular exam: PRESENT: +S1, +S2 Pulses: PRESENT: normal radial pulses, normal dorsalis pedis pul GI/Abdominal exam: PRESENT: normal bowel sounds, soft Extremities exam: PRESENT: full ROM Musculoskeletal exam: PRESENT: ambulatory Results Laboratory Results: 01/04/19 06:39 01/04/19 06:39 01/03/19 01/03/19 01/03/19 06:24 06:24 21:03 WBC RBC Hgb Hct MCV MCH MCHC RDW Plt Count Seg Neutrophils % Lymphocytes % Monocytes % Eosinophils % Basophils % Absolute Neutrophils Absolute Lymphocytes Absolute Monocytes Absolute Eosinophils Absolute Basophils Sodium Potassium Chloride Carbon Dioxide Anion Gap BUN Creatinine Est GFR ( Amer) Est GFR (Non-Af Amer) Glucose Calcium Magnesium Triglycerides 208 H Cholesterol 153.26 LDL Cholesterol Direct 74 VLDL Cholesterol 41.6 H HDL Cholesterol 42 TSH 2.54 Free T4 1.99 Free T3 pg/mL 3.69 Urine Color YELLOW Urine Appearance CLEAR Urine pH 6.0 Ur Specific [place] 1.030 Urine Protein NEGATIVE Urine Glucose (UA) >=500 H Urine Ketones NEGATIVE Urine Blood NEGATIVE Urine Nitrite NEGATIVE Ur Leukocyte Esterase NEGATIVE Urine WBC (Auto) 1 Urine RBC (Auto) 1 01/04/19 01/04/19 06:39 06:39 WBC 7.5 RBC 3.91 Hgb 13.8 Hct 39.3 MCV 100 H MCH 35.3 H MCHC 35.2 RDW 12.9 Plt Count 236 Seg Neutrophils % 67.5 Lymphocytes % 22.8 Monocytes % 9.0 Eosinophils % 0.1 Basophils % 0.6 Absolute Neutrophils 5.1 Absolute Lymphocytes 1.7 Absolute Monocytes 0.7 Absolute Eosinophils 0.0 Absolute Basophils 0.0 Sodium 136.7 L Potassium 4.0 Chloride 105 Carbon Dioxide 25 Anion Gap 7 BUN 10 Creatinine 0.53 Est GFR ( Amer) > 60 Est GFR (Non-Af Amer) > 60 Glucose 152 H Calcium 8.8 Magnesium 2.1 Triglycerides Cholesterol LDL Cholesterol Direct VLDL Cholesterol HDL Cholesterol TSH Free T4 Free T3 pg/mL Urine Color Urine Appearance Urine pH Ur Specific [place] Urine Protein Urine Glucose (UA) Urine Ketones Urine Blood Urine Nitrite Ur Leukocyte Esterase Urine WBC (Auto) Urine RBC (Auto) 01/03/19 01/03/19 01/03/19 06:24 10:30 17:43 Troponin I 0.095 0.065 0.045 01/04/19 01:05 Troponin I 0.040 Impressions: Chest X-Ray 01/03/19 06:45 IMPRESSION: No acute cardiopulmonary findings. Assessment & Plan - Diagnosis (1) Chest pain Qualifiers: Chest pain type: unspecified Qualified Code(s): R07.9 - Chest pain, unspecified Is this a current diagnosis for this admission?: Yes (2) Diabetes Qualifiers: Diabetes mellitus type: type 2 Is this a current diagnosis for this admission?: No (3) Tobacco abuse Is this a current diagnosis for this admission?: No (4) Hyperlipidemia Is this a current diagnosis for this admission?: No - Notes Notes: Patient with multiple risk factors for atherosclerotic cardiovascular disease admitted with chest pain with cardiac biomarkers negative for acute coronary syndrome. We will get a transthoracic echocardiogram today. Patient has already had a stress test 2 years ago which was negative but in view of continuing anginal sounding symptoms would recommend invasive coronary work-up to rule out obstructive coronary artery disease. Cardiac cath team to evaluate patient today. Continue patient on aspirin, statin and add low-dose beta- jade if blood pressure tolerates. - Time Time with patient: 15-25 minutes
[2019-01-04] MEDS: ASPIRIN 81 MG TABLET, CHEWABLE PO SCH (09:01)
[2019-01-04] MEDS: ENOXAPARIN SODIUM INJ 80 MG/0.8 ML DISP.SYRIN SUBCUT SCH (09:01)
[2019-01-04] MEDS: DOCUSATE SODIUM 100 MG CAPSULE PO SCH (09:01)
[2019-01-04] MEDS: FAMOTIDINE INJ/PF 20 MG/2 ML SDV IV SCH ×2 (09:03→21:13)
[2019-01-04] MEDS ORDERED: RADIAL COCKTAIL SYRINGE 10 ML IV PRN ×4 (13:00)
[2019-01-04] MEDS ORDERED: LIDOCAINE 1% INJ-PF (10 MG/ML) 30 ML SDV ONE (13:34)
[2019-01-04] MEDS ORDERED: HEPARIN SODIUM,PORCINE/NS/PF 2,000 UNIT/1,000 ML RTUINJ IV ONE (13:35)
[2019-01-04] MEDS ORDERED: HEPARIN SOD (PORCINE) 1,000 UNIT/ML 10 ML VIAL ONE (13:41)
[2019-01-04] MEDS ORDERED: FENTANYL CITRATE INJ/PF 100 MCG/2 ML AMPUL ONE (13:41)
[2019-01-04] MEDS ORDERED: MIDAZOLAM 2 MG/2 ML INJ ONE (13:41)
[2019-01-04] MEDS ORDERED: NITROGLYCERIN/D5W 50 MG/250 ML RTUINJ IV ONE (14:14)
--- NOTE | 2019-01-04 14:38 | Operative Report ---
Operative Report DATE OF SURGERY: 01/04/19 PREOPERATIVE DIAGNOSIS: Recurrent chest pain POSTOPERATIVE DIAGNOSIS: Takatsubo cardiomyopathy OPERATION: Left heart catheterization, coronary angiography, left ventriculography SURGEON: WILDER SCOTT ANESTHESIA: Moderate Sedation PROCEDURE: After informed consent was obtained the patient was brought to the cardiac catheterization lab and the right wrist was prepared in usual sterile and draped manner. Hemodynamic access was gained using micropuncture technique and the patient was anticoagulated with heparin. An intra-arterial cocktail of lynne apamil and lidocaine was administered. Selective coronary angiography was performed with a [place] catheter. This was exchanged with pigtail catheter and left ventriculography was performed in standard FOURNIER projection. The patient left the Cardiac Catheterization Lab in stable condition, with intact distal pulses and no chest pain or other complications from the procedure. Conscious sedation was initiated, monitored, and maintained during the procedure with the start time of 1403 and a completion time of 1423 for a total procedure time of 20 minutes. A total of 1.5 milligrams of Versed and 100 mcg fentanyl were used for conscious sedation. HEMODYNAMIC DATA: Left ventricular pressure to beginning the case is 126/10 post ventriculography left ventricular pressure is 123/9 aortic pressure on pullback is 120/58 there is no gradient across the aortic valve [] CORONARY ANATOMY: [] Left ventriculography is performed in the standard FOURNIER projections demonstrates anterior anterior apical and inferior apical hypokinesis to severe akinesis of the apex the anterior basal and posterior basal segments are hyperdynamic this is most consistent with takatsubo or stress cardiomyopathy.] CORONARY ANGIOGRAPHY: [] LEFT MAIN: [Left main is normal] LEFT ANTERIOR DESCENDING: [The LAD is a transapical vessel with a 30% stenosis in the proximal portion the segment is calcified but nonobstructive there are minor luminal irregularities and a bifurcating diagonal branch] CIRCUMFLEX CORONARY: [The circumflex gives rise to a large first obtuse marginal which has irregularities the AV groove circumflex gives several small marginals and a posterolateral which also have irregularities but no critical or obstructive lesions are seen] RIGHT CORONARY ARTERY: The right coronary artery is dominant supplying the PDA and posterolateral branches calcification and luminal irregularities are seen in the out the course of this vessel the mid to distal vessel has a 40% to borderline 50% stenosis which does not appear to be flow-limiting or obstructive at this time. IMPRESSION: [ 1. Mild to moderate coronary artery disease 2. No evidence of valvular heart disease 3. Cardiomyopathic left ventricle with reduced left ventricular function can consistent with takatsubo or stress cardiomyopathy] Recommendations: 1. maximal risk factor modification 2. Medical therapy for dilated cardiomyopathy.
--- NOTE | 2019-01-04 15:56 | PDOC PROGRESS REPORT ---
Subjective Progress Note for:: 01/04/19 Subjective:: BECCA SESAY is a 63 year old female medical history of diabetes, hypertension, dyslipidemia, diabetes, hypothyroidism, COPD not on home oxygen, family history of CAD on the father's side, ED complaining of chest pain. She was sleeping last night woke up with left-sided chest pain at 3 AM which she explains as 5/5, sharp radiating to her back, with deep breathing, better with sitting or standing up, constant, improved to 2/5 on severity scale after receiving nitro a nd morphine in ED. Chest pain associated with shortness of breath otherwise denies any fever, chills, nausea, vomiting, diarrhea, constipation, urinary system, weight changes, lower extremity swelling, orthopnea, paroxysmal nocturnal dyspnea, cold or heat intolerance, skin changes, IV drug abuse, t rauma, heavy lifting. In ED EKG was SR, inferior infarct age indeterminate and incomplete RBBB, tr oponin 0.095 and 0.065 respectively. X-ray no acute cardiopulmonary findings. In Ed she was started on Nitro, aspirn and IV morphine, hospitalist consulted for admission. On physical examination patient has mild TTP to the left pectoral region denies any heavy lifting or trauma. 01/04/2019. Patient is scheduled to have a left heart cath today, on my encounter patient denies any chest pain, however yesterday she has had several episodes of chest pain relieved by nitro. Troponin mild elevated but trending down. Is n.p.o. for left heart cath today denies any shortness of breath, nausea, vomiting, diarrhea, constipation or any urinary symptoms. Reason For Visit: CHEST PAIN Physical Exam Vital Signs: Temp Pulse Resp BP Pulse Ox 97.7 F 93 16 105/56 L 95 01/04/19 15:36 01/04/19 15:36 01/04/19 15:36 01/04/19 15:36 01/04/19 15:36 Intake & Output 01/03/19 01/04/19 01/05/19 06:59 06:59 06:59 Intake Total 800 Output Total 1150 Balance -350 Weight 65.5 kg 65.5 kg General appearance: PRESENT: no acute distress, well-developed, well-nourished Head exam: PRESENT: atraumatic, normocephalic Eye exam: PRESENT: conjunctiva pink, EOMI, PERRLA. ABSENT: scleral icterus Ear exam: PRESENT: normal external ear exam Mouth exam: PRESENT: moist, tongue midline Neck exam: ABSENT: carotid bruit, JVD, lymphadenopathy, thyromegaly Respiratory exam: PRESENT: clear to auscultation biju. ABSENT: rales, rhonchi, wheezes Cardiovascular exam: PRESENT: RRR. ABSENT: diastolic murmur, rubs, systolic murmur Pulses: PRESENT: normal dorsalis pedis pul Vascular exam: PRESENT: normal capillary refill GI/Abdominal exam: PRESENT: normal bowel sounds, soft. ABSENT: distended, guarding, mass, organolmegaly, rebound, tenderness Rectal exam: PRESENT: deferred Extremities exam: PRESENT: full ROM. ABSENT: calf tenderness, clubbing, pedal edema Neurological exam: PRESENT: alert, awake, oriented to person, oriented to place, oriented to time, oriented to situation, CN II-XII grossly intact. ABSENT: motor sensory deficit Psychiatric exam: PRESENT: appropriate affect, normal mood. ABSENT: homicidal ideation, suicidal ideation Skin exam: PRESENT: dry, intact, warm. ABSENT: cyanosis, rash Results Laboratory Results: 01/04/19 06:39 01/04/19 06:39 01/03/19 01/04/19 01/04/19 21:03 06:39 06:39 WBC 7.5 RBC 3.91 Hgb 13.8 Hct 39.3 MCV 100 H MCH 35.3 H MCHC 35.2 RDW 12.9 Plt Count 236 Seg Neutrophils % 67.5 Lymphocytes % 22.8 Monocytes % 9.0 Eosinophils % 0.1 Basophils % 0.6 Absolute Neutrophils 5.1 Absolute Lymphocytes 1.7 Absolute Monocytes 0.7 Absolute Eosinophils 0.0 Absolute Basophils 0.0 Sodium 136.7 L Potassium 4.0 Chloride 105 Carbon Dioxide 25 Anion Gap 7 BUN 10 Creatinine 0.53 Est GFR ( Amer) > 60 Est GFR (Non-Af Amer) > 60 Glucose 152 H Calcium 8.8 Magnesium 2.1 Urine Color YELLOW Urine Appearance CLEAR Urine pH 6.0 Ur Specific [place] 1.030 Urine Protein NEGATIVE Urine Glucose (UA) >=500 H Urine Ketones NEGATIVE Urine Blood NEGATIVE Urine Nitrite NEGATIVE Ur Leukocyte Esterase NEGATIVE Urine WBC (Auto) 1 Urine RBC (Auto) 1 01/03/19 01/03/19 01/03/19 06:24 10:30 17:43 Troponin I 0.095 0.065 0.045 01/04/19 01:05 Troponin I 0.040 Impressions: Chest X-Ray 01/03/19 06:45 IMPRESSION: No acute cardiopulmonary findings. Assessment and Plan - Diagnosis (1) Chest pain Qualifiers: Chest pain type: unspecified Qualified Code(s): R07.9 - Chest pain, unspecified Is this a current diagnosis for this admission?: Yes Plan: Likely due to NSTEMI. CHRISTIANO Score 128. HEART Score 4 Continue telemetry, antiplatelets, Lovenox, nitro as needed, morphine as needed, supplemental O2, statins. Consider ADDIE or beta-jade. Troponins 0.095, 0.065, 0.045, 0.040 respectively. Stress test canceled. Patient is having left heart cath today. (2) HTN (hypertension) Is this a current diagnosis for this admission?: No Plan: Currently normotensive. Patient takes verapamil at home. Benefit from ADDIE/ARB to underlying diabetes as well as CAD. (3) Diabetes Qualifiers: Diabetes mellitus type: type 2 Is this a current diagnosis for this admission?: No Plan: Hemoglobin A1c 7.0. Reports compliant with her oral antidiabetic's. Takes Trulicity , Invokana and glimepiride at home. Diabetic diet, sliding scale insulin, long-acting insulin, pre-meal insulin. Dosage as needed. Restart home meds on discharge. Follow-up A1c. (4) Hyperlipidemia Is this a current diagnosis for this admission?: No Plan: Diet and lifestyle modification. Restart statins. (5) Tobacco abuse Is this a current diagnosis for this admission?: No Plan: Counseled on quitting. Will provide NicoDerm patch. (6) COPD (chronic obstructive pulmonary disease) Is this a current diagnosis for this admission?: No Plan: Does not seem to be exacerbated. Start home meds. Supplemental oxygen. PRN nebs and BiPAP. (7) Hypothyroidism Is this a current diagnosis for this admission?: No Plan: Start home meds. TSH 2.454 T4 1.99 T3 3.69.
--- NOTE | 2019-01-04 17:28 | XCELERA REPORT ---
[address] [address] Transthoracic Echocardiogram Report Name: BECCA SESAY Age: 63 yrs Gender: Female : 1955 Patient Status: Inpatient Patient Location: [facility] Study Date: 01/04/2019 09:56 AM Height: 67 in Weight: 144 lb BSA: 1.8 m2 Reason For Study: chest pain Ordering Physician: VLAD MON Performed By: Catherine Samuel Interpretation Summary Study quality suboptimal. Lack of contrast opacification limits evaluation for wall motion, intracardiacc mass/ thrombus. LVEF appears low normal at 50-55% visually. RV systolic functiion appears normal. The transmitral spectral Doppler flow pattern is abnormal for age The aortic valve is not well visualized but appears focally calcified with doppler data provided not suggestive of any significant stenosis. RVSP could not be estimated. There is no pericardial effusion. The inferior vena cava appeared small and collapsed with respiration (RAP 0-5 mmHg) The aortic root is normal size. MMode/2D Measurements & Calculations IVSd: 0.85 cm LVIDd: 4.6 cm FS: 25.0 % Ao root diam: 3.2 cm LVIDs: 3.5 cm EDV(Teich): Ao root area: LVPWd: 0.87 cm 98.3 ml ESV(Teich): 8.3 cm2 49.5 ml EF(Teich): 49.6 % EDV(MOD-sp4): SV(MOD-sp4): 53.3 ml 23.4 ml ESV(MOD-sp4): 30.0 ml EF(MOD-sp4): 43.8 % Doppler Measurements & Calculations MV E max shukri: MV dec slope: Ao V2 max: LV V1 max P.9 cm/sec 99.4 cm/sec 3.0 mmHg MV A max shukri: 501.7 cm/sec2 Ao max PG: LV V1 max: 112.5 cm/sec MV dec time: 0.14 sec4.0 mmHg 87.1 cm/sec MV E/A: 0.62 PA V2 max: 81.9 cm/sec PA max P.7 mmHg Left Ventricle The left ventricular ejection fraction is normal. LV EF is 50-55%. The transmitral spectral Doppler flow pattern is abnormal for age. Right Ventricle The right ventricular systolic function is normal. Atria Right atrium not well visualized secondary to technical limitations. The left atrium is not well visualized secondary to technical limitations. Interatrial septal thickening is noted. Mitral Valve MV leaflets appear focally thickened with preserved opening. Aortic Valve The aortic valve is calcified. The aortic valve is not well visualized secondary to technical limitations. There is a peak gradient of 3.95 mm of Hg. Tricuspid Valve The tricuspid valve is not well visualized secondary to technical limitations. Tricuspid regurgitation jet envelope not well defined to measure RV systolic pressure accurately. RVSP could not be estimated. Pulmonic Valve The pulmonic valve is not well visualized. Great Vessels The aortic root is normal size. The inferior vena cava appeared small and collapsed with respiration (RAP 0-5 mmHg). Effusions There is no pericardial effusion. : VLAD MON > Vlad Mon
[2019-01-04] MEDS: METOPROLOL TARTRATE 25 MG TABLET PO SCH (18:50)
[2019-01-04] MEDS: SIMVASTATIN 40 MG TABLET PO SCH (21:13)
[2019-01-05] MEDS: LEVOTHYROXINE SODIUM 0.112 MG TABLET PO SCH (05:13)
[2019-01-05] MEDS: METOPROLOL TARTRATE 25 MG TABLET PO SCH (05:13)
[2019-01-05 07:03] LABS: HEMATOCRIT 39.6 % (36.0-47.0); HEMOGLOBIN 13.6 g/dL (12.0-15.5); MEAN CORPUSCULAR HEMOGLOBIN 34.4 pg (27.0-33.4); MEAN CORPUSCULAR HGB CONC 34.4 g/dL (32.0-36.0); MEAN CORPUSCULAR VOLUME 100 fl (80-97); PLATELET COUNT 236 10^3/uL (150-450); RED BLOOD COUNT 3.96 10^6/uL (3.72-5.28); RED CELL DISTRIBUTION WIDTH 13.2 % (11.5-14.0); WHITE BLOOD COUNT 5.8 10^3/uL (4.0-10.5)
[2019-01-05 07:21] LABS: ANION GAP 8 (5-19); BLOOD UREA NITROGEN 14 mg/dL (7-20); CARBON DIOXIDE 22 mmol/L (22-30); CHLORIDE 108 mmol/L (98-107); GLUCOSE 166 mg/dL (75-110); POTASSIUM 4.1 mmol/L (3.6-5.0); SODIUM 137.8 mmol/L (137-145)
[2019-01-05] MEDS: INSULIN LISPRO 100 UNIT/ML 3 ML VIAL SUBCUT SCH (08:03)
[2019-01-05 08:32] VITALS: BP 126/74
[2019-01-05] MEDS: ASPIRIN 81 MG TABLET, CHEWABLE PO SCH (09:07)
--- NOTE | 2019-01-05 18:24 | PDOC DISCHARGE SUMMARY ---
General - Admit/Disc Date/PCP Admission Date/Primary Care Provider: 01/03/19 08:21 IVÁN RIVERA MD Discharge Date: 01/05/19 - Discharge Diagnosis (1) Takotsubo cardiomyopathy Is this a current diagnosis for this admission?: Yes (2) Chest pain Is this a current diagnosis for this admission?: Yes (3) HTN (hypertension) Is this a current diagnosis for this admission?: No (4) Diabetes Is this a current diagnosis for this admission?: No (5) Hyperlipidemia Is this a current diagnosis for this admission?: No (6) Tobacco abuse Is this a current diagnosis for this admission?: No (7) COPD (chronic obstructive pulmonary disease) Is this a current diagnosis for this admission?: No (8) Hypothyroidism Is this a current diagnosis for this admission?: No - Additional Information Discharge Diet: Cardiac Discharge Activity: Activity As Tolerated, Balance Activity w/Rest Prescriptions: Aspirin [Aspirin 81 mg Chewable Tablet] 81 mg PO DAILY 30 Days #30 tab.chew Metoprolol Tartrate [Lopressor 25 mg Tablet] 12.5 mg PO Q12A 30 Days #60 tablet Simvastatin [Zocor 40 mg Tablet] 40 mg PO QHS 30 Days #30 tablet Home Medications: Albuterol Sulfate [Proair HFA Inhalation Aerosol 8.5 gm MDI] 1 puff IH Q4HP PRN 01/03/19 Canagliflozin [Invokana] 300 mg PO DAILY 01/03/19 Dulaglutide [Trulicity] 1.5 mg SQ MO 01/03/19 Estradiol 0.5 mg PO Q12 01/03/19 Glimepiride [Amaryl 4 mg Tablet] 4 mg PO BID 01/03/19 Ibuprofen [Motrin 800 mg Tablet] 800 mg PO Q8HP PRN 01/03/19 Levothyroxine Sodium 112 mcg PO Q6AM 01/03/19 Metformin HCl [Metformin HCl ER] 1,000 mg PO Q12 01/03/19 Aspirin [Aspirin 81 mg Chewable Tablet] 81 mg PO DAILY 30 Days #30 tab.chew 01/05/19 Metoprolol Tartrate [Lopressor 25 mg Tablet] 12.5 mg PO Q12A 30 Days #60 tablet 01/05/19 Simvastatin [Zocor 40 mg Tablet] 40 mg PO QHS 30 Days #30 tablet 01/05/19 History of Present Illness History of Present Illness: BECCA SESAY is a 63 year old female medical history of diabetes, hypertension, dyslipidemia, diabetes, hypothyroidism, COPD not on home oxygen, family history of CAD on the father's side, ED complaining of chest pain. She was sleeping last night woke up with left-sided chest pain at 3 AM which she explains as 5/5, sharp radiating to her back, with deep breathing, better with sitting or standing up, constant, improved to 2/5 on severity scale after receiving nitro and morphine in ED. Chest pain associated with shortness of breath otherwise denies any fever, chills, nausea, vomiting, diarrhea, constipation, urinary system, weight changes, lower extremity swelling, orthopnea, paroxysmal nocturnal dyspnea, cold or heat intolerance, skin changes, IV drug abuse, trauma, heavy lifting. In ED EKG was SR, inferior infarct age indeterminate and incomplete RBBB, troponin 0.095 and 0.065 respectively. X-ray no acute cardiopulmonary findings. In Ed she was started on Nitro, aspirn and IV morphine, hospitalist consulted for admission. On physical examination patient has mild TTP to the left pectoral region denies any heavy lifting or trauma. Hospital Course Hospital Course: (1) Takotsubo cardiomyopathy 01/04/2019: LHC by Dr. Jorge Gooden showed mild to moderate CAD. No evidence of valvular heart disease. Cardiomyopathy with left ventricular reduced EF consistent with Takotsubo or stress cardiomyopathy. Recommendations: Maximal risk factor modification. Medical therapy for dilated cardiomyopathy. 01/04/2019. 2D echo LVEF 50-55%. As per Dr. Mon's recommendation and will discharge home on metoprolol 12.5 mg p.o. twice daily and aspirin 81 mg p.o. daily and simvastatin 40 mg p.o. daily. An appointment was made for her to follow-up with Dr. Schroeder kitchen stewardess. Note: Could benefit from ADDIE inhibitors however on this admission patient blood pressure was low normal. I would leave it up to her PCP and Dr. Schroeder kitchen stewardess to start her on ADDIE if they deem it appropriate. (1) Chest pain Resolved. Likely due number one. CHRISTIANO Score 128. HEART Score 4 Admited to telemetry, antiplatelets, Lovenox, nitro as needed, morphine as needed, supplemental O2, statins. Troponins 0.095, 0.065, 0.045, 0.040 respectively. (2) HTN (hypertension) Currently normotensive. Verapamil was DC'd and patient was switched to beta-blo ckers. (3) Diabetes Controlled. Hemoglobin A1c 7.0. Reports compliant with her oral antidiabetic's. Takes Trulicity , Invokana and glimepiride at home. Started on diabetic diet, sliding scale insulin, long-acting insulin, pre-meal insulin. Instructed to restart home meds on discharge. (4) Hyperlipidemia Increase simvastatin to 40 mg p.o. daily. Diet and lifestyle modification advised. She could benefit from high intensity statins such as Lipitor and Crestor however she mentioned that in the past she has not been able to tolerate either of them. (5) Tobacco abuse Counseled on quitting. Will provide NicoDerm patch. (6) COPD (chronic obstructive pulmonary disease) Did not seem to be exacerbated. Start home meds. Supplemental oxygen. PRN nebs and BiPAP. (7) Hypothyroidism Start home meds. TSH 2.454 T4 1.99 T3 3.69. Physical Exam Vital Signs: Temp Pulse Resp BP Pulse Ox 97.3 F 79 16 126/74 H 98 01/05/19 09:12 01/05/19 09:12 01/05/19 09:12 01/05/19 09:12 01/05/19 09:12 Intake & Output 01/04/19 01/05/19 01/06/19 06:59 06:59 06:59 Intake Total 800 600 Output Total 1150 700 Balance -350 -100 Weight 65.5 kg 65.4 kg General appearance: PRESENT: no acute distress, well-developed, well-nourished Head exam: PRESENT: atraumatic, normocephalic Eye exam: PRESENT: conjunctiva pink, EOMI, PERRLA. ABSENT: scleral icterus Ear exam: PRESENT: normal external ear exam Mouth exam: PRESENT: moist, tongue midline Neck exam: ABSENT: carotid bruit, JVD, lymphadenopathy, thyromegaly Respiratory exam: PRESENT: clear to auscultation biju. ABSENT: rales, rhonchi, wheezes Cardiovascular exam: PRESENT: RRR. ABSENT: diastolic murmur, rubs, systolic murmur Pulses: PRESENT: normal dorsalis pedis pul Vascular exam: PRESENT: normal capillary refill GI/Abdominal exam: PRESENT: normal bowel sounds, soft. ABSENT: distended, guarding, mass, organolmegaly, rebound, tenderness Rectal exam: PRESENT: deferred Extremities exam: PRESENT: full ROM. ABSENT: calf tenderness, clubbing, pedal edema Neurological exam: PRESENT: alert, awake, oriented to person, oriented to place, oriented to time, oriented to situation, CN II-XII grossly intact. ABSENT: motor sensory deficit Psychiatric exam: PRESENT: appropriate affect, normal mood. ABSENT: homicidal ideation, suicidal ideation Skin exam: PRESENT: dry, intact, warm. ABSENT: cyanosis, rash Results Laboratory Results: 01/05/19 06:12 01/05/19 06:12 01/05/19 01/05/19 06:12 06:12 WBC 5.8 RBC 3.96 Hgb 13.6 Hct 39.6 MCV 100 H MCH 34.4 H MCHC 34.4 RDW 13.2 Plt Count 236 Sodium 137.8 Potassium 4.1 Chloride 108 H Carbon Dioxide 22 Anion Gap 8 BUN 14 Creatinine 0.54 Est GFR ( Amer) > 60 Est GFR (Non-Af Amer) > 60 Glucose 166 H Calcium 8.0 L Magnesium 2.0 01/03/19 01/03/19 01/03/19 06:24 10:30 17:43 Troponin I 0.095 0.065 0.045 01/04/19 01:05 Troponin I 0.040 Impressions: Chest X-Ray 01/03/19 06:45 IMPRESSION: No acute cardiopulmonary findings. Qualifiers - * PATIENT BEING DISCHARGED WITH ANY OF THE FOLLOWING DIAGNOSIS: No Acute Heart Failure - Is this a Heart Failure Patient?: No
== END 2019-01-05 10:25 | disposition home health service (06) ==
LOC: ER 05:55 → INTOOBSV 08:21 → EH 08:21 → 3S 12:40
PROVIDERS: ADMIT Internal Medicine; ATTEND Internal Medicine
PROC: HZ31ZZZ Individual Counseling for Substance Abuse Treatment, Behavioral (ICD-10-PCS; principal; 2019-01-03)
PROC: 4A023N7 Measurement of Cardiac Sampling and Pressure, Left Heart, Percutaneous Approach (ICD-10-PCS; 2019-01-04)
DX: I51.81 Takotsubo syndrome (principal); R07.89 Other chest pain; I10 Essential (primary) hypertension; E11.9 Type 2 diabetes mellitus without complications; E78.5 Hyperlipidemia, unspecified; J44.9 Chronic obstructive pulmonary disease, unspecified; E03.9 Hypothyroidism, unspecified; I45.10 Unspecified right bundle-branch block; F17.210 Nicotine dependence, cigarettes, uncomplicated; M54.9 Dorsalgia, unspecified; D72.829 Elevated white blood cell count, unspecified; Z79.82 Long term (current) use of aspirin; Z79.899 Other long term (current) drug therapy; Z79.84 Long term (current) use of oral hypoglycemic drugs; Z82.49 Family history of ischemic heart disease and other diseases of the circulatory system; Z90.49 Acquired absence of other specified parts of digestive tract
CPT/HCPCS: 93005 ×2; 99285; 96372; 96374; 96375; 36415 ×3; 84439; 82962 ×3; 83735 ×2; 84443; 85025 ×2; 85027; 80048 ×2; 80053; 81001; 84484 ×2; 80307; 84481; 83036; 80061; 93306; 93458; 71045; 93010; 99406; G0378 ×4; J2250; J3010; J1644 ×2; J1815 ×3; J3490 ×2; J2270; J1650 ×2; J2405; J7030 ×2; S0028 ×2

== ENCOUNTER → 2020-07-16 | Outpatient (CLI) | payer BC, OTHER ==
[2020-07-16 11:25] LABS: ABSOLUTE BASOPHILS # (AUTO) 0.1 10^3/uL (0.0-0.2); ABSOLUTE LYMPHOCYTES (AUTO) 1.6 10^3/uL (0.5-4.7); ABSOLUTE MONOCYTES (AUTO) 0.5 10^3/uL (0.1-1.4); ABSOLUTE NEUT (AUTO) 4.7 10^3/uL (1.7-8.2); BASOPHILS % (AUTO) 0.9 % (0-2); EOSINOPHILS % (AUTO) 0.1 % (0-6); HEMOGLOBIN 16.1 g/dL (12.0-15.5); LYMPHOCYTES % (AUTO) 23.3 % (13-45); MEAN CORPUSCULAR HEMOGLOBIN 34.2 pg (27.0-33.4); MEAN CORPUSCULAR HGB CONC 35.1 g/dL (32.0-36.0); MEAN CORPUSCULAR VOLUME 98 fl (80-97); MONOCYTES % (AUTO) 7.7 % (3-13); PLATELET COUNT 365 10^3/uL (150-450); RED BLOOD COUNT 4.71 10^6/uL (3.72-5.28); RED CELL DISTRIBUTION WIDTH 12.7 % (11.5-14.0); TOTAL CELLS COUNTED % (AUTO) 100 %; WHITE BLOOD COUNT 6.9 10^3/uL (4.0-10.5)
[2020-07-16 11:46] LABS: ALBUMIN 4.6 g/dL (3.5-5.0); ALKALINE PHOSPHATASE 67 U/L (38-126); ANION GAP 11 (5-19); ASPARTATE AMINO TRANSFERASE 36 U/L (14-36); BILIRUBIN,DIRECT 0.2 mg/dL (0.0-0.4); BILIRUBIN,TOTAL 0.7 mg/dL (0.2-1.3); BLOOD UREA NITROGEN 13 mg/dL (7-20); CARBON DIOXIDE 27 mmol/L (22-30); CHLORIDE 100 mmol/L (98-107); GLUCOSE 160 mg/dL (75-110); POTASSIUM 5.2 mmol/L (3.6-5.0); TOTAL PROTEIN 7.8 g/dL (6.3-8.2); TRIGLYCERIDES 270 mg/dL (<150)
[2020-07-16 11:56] LABS: DIRECT LDL 44 mg/dL (<100)
== END ==
LOC: OD 10:36
PROVIDERS: ATTEND Internal Medicine
DX: E11.9 Type 2 diabetes mellitus without complications (principal); I10 Essential (primary) hypertension; E78.5 Hyperlipidemia, unspecified; K21.9 Gastro-esophageal reflux disease without esophagitis
CPT/HCPCS: 36415; 80053; 80061; 83036; 84443; 85025